=== PATIENT | male | born 1980 | race Two or more races ===

== ENCOUNTER 2024-06-21 04:23 | Emergency (ER) | payer MEDICAID, SELFPAY ==
[2024-06-21 04:24] VITALS: BMI 32.5
[2024-06-21 04:36] VITALS: BP 167/124; PULSE 89; RESP 19; TEMP 36.8; O2SAT 98
--- NOTE | 2024-06-21 04:46 | XR_ITS ---
Examination: Hand, left 3 views Technique: Hand AP, oblique, lateral 3 views Date and time of exam: June 21, 2024 0452 hrs. Indications: Injury to the hand today, foreign bodies and pain Findings: No opaque foreign bodies No cortical bone destruction No fracture or dislocation Impression: No opaque foreign bodies visualized
--- NOTE | 2024-06-21 04:52 | EDRME_ITS ---
Rapid Medical Screening Exam [facility] Arrival date/time: 06/21/24 04:23 43M with history of DM and drug use abuse presents to ED with several days of L hand pain/swelling after he was poked by porcupine-like needles several days ago. Separately, patient has an ulcer on the shaft of his penis. Patient denies dysuria and penile discharge. Chief Complaint: Hand/Wrist Problems Vital signs: Vital Signs Temperature 98.3 F 06/21/24 04:36 Pulse Rate 89 06/21/24 04:36 Respiratory Rate 19 06/21/24 04:36 Blood Pressure 167/124 H 06/21/24 04:36 Pulse Oximetry (%) 98 06/21/24 04:36 Oxygen Delivery Method Room Air 06/21/24 04:36
[2024-06-21 05:33] LABS: Basophils % (Auto) 0 % (0-2.5); Eosinophils # (Auto) 0.1 Thou/mm3 (0.0-0.5); Eosinophils % (Auto) 1 % (0-10); Hematocrit 44.5 % (41.0-53.0); Immature Granulocytes % (Auto) 1 % (0-0); Immature Granulocytes Auto 0.06 Thou/mm3 (0.00-0.00); Lymphocytes # (Auto) 1.6 Thou/mm3 (1.0-4.8); Lymphocytes % (Auto) 13 % (10-50); Mean Corpuscular HGB Conc 33.7 g/dl (31.0-37.0); Mean Corpuscular Hemoglobin 27.6 pg (25.0-35.0); Mean Corpuscular Volume 82 fL (80-100); Monocytes # (Auto) 1.1 Thou/mm3 (0.0-0.8); Monocytes % (Auto) 9 % (0-12); Neutrophils # (Auto) 9.4 Thou/mm3 (1.8-7.7); Neutrophils % (Auto) 77 % (37-80); Nucleated Red Blood Cell % 0 /100 WBC (0); Platelet Count 266 Thou/mm3 (140-440); RDW Standard Deviation 40.7 fL (35.1-43.9); Red Blood Count 5.43 Miln/mm3 (4.50-5.90); White Blood Count 12.2 Thou/mm3 (3.8-10.6)
[2024-06-21 05:51] LABS: Alanine Aminotransferase 26 U/L (10-49); Albumin, Serum 4.6 gm/dL (3.5-5.0); Albumin/Globulin Ratio 1.8 (1.2-2.2); Alkaline Phosphatase 105 U/L (46-116); Anion Gap 7 (7-16); Aspartate Amino Transferase 26 U/L (0-34); BUN/Creatinine Ratio 14 Ratio (12-20); Bilirubin,Total 0.8 mg/dL (0.3-1.2); Blood Urea Nitrogen 13 mg/dL (9-23); Calcium 9.1 mg/dL (8.3-10.6); Calcium (Corrected) 9.1 mg/dL (8.5-10.1); Carbon Dioxide 24.2 mMol/L (20.0-31.0); Chloride 105 mMol/L (98-107); Creatinine (Component) 0.9 mg/dL (0.6-1.3); Estimated Creatinine Clearance 102.6 mL/min (>60); Globulin 2.6 gm/dL (2.3-3.5); Glucose 151 mg/dL (74-106); Osmolality,Calculated 275 (275-295); Potassium 3.8 mMol/L (3.4-5.1); Sodium 136 mMol/L (136-145); Total Protein 7.2 gm/dL (5.7-8.2); eGFR > 60 See Note
[2024-06-21 06:10] LABS: Syphilis Nonreactive (Nonreactive)
[2024-06-21 07:34] VITALS: PULSE 90
--- NOTE | 2024-06-21 07:34 | PC.NURSE ---
Pt coming from ED lobby; pt c/o L hand pain s/p being poked by a porcupine. 2 of pt's L hand fingers swollen with decreased ROM due to pain & swelling. Pt A&Ox4, GCS 15; pt in bed resting comfortably at this time.
[2024-06-21] MEDS: KETOROLAC INJ 60 MG/2 ML VIAL 30 MG IM (08:04)
--- NOTE | 2024-06-21 08:08 | PD.EDRME ---
Rapid Medical Screening Exam RME Arrival date/time: 06/21/24 04:23 06/21/24 04:23 43M with history of DM and drug use abuse presents to ED with several days of L hand pain/swelling after he was poked by porcupine-like needles several days ago. Separately, patient has an ulcer on the shaft of his penis. Patient denies dysuria and penile discharge. DR. BURNETTE MAIN ED EVALUATION: Chief Complaint: Hand/Wrist Problems Vital signs: Vital Signs Temperature 98.3 F 06/21/24 04:36 Pulse Rate 89 06/21/24 04:36 Respiratory Rate 19 06/21/24 04:36 Blood Pressure 167/124 H 06/21/24 04:36 Pulse Oximetry (%) 98 06/21/24 04:36 Oxygen Delivery Method Room Air 06/21/24 04:36 E Narrative: 06/21/24 04:23 43M with history of DM and drug use abuse presents to ED with several days of L hand pain/swelling after he was poked by porcupine-like needles several days ago. Separately, patient has an ulcer on the shaft of his penis. Patient denies dysuria and penile discharge.
[2024-06-21 08:16] VITALS: BP 109/74; PULSE 85; RESP 17; TEMP 36.9; O2SAT 97
--- NOTE | 2024-06-21 08:20 | PC.NURSE ---
Dr. Shiloh Treviño made aware of pt's FSBS 241
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
--- NOTE | 2024-06-21 08:33 | PC.NURSE ---
@0833- RN at bedside; pt requesting to leave AMA; RN asked if pt can wait for discharge instructions. Pt replied, No, I've been here for 4 hours. I dont wanna wait anymore. Pt asked if pt willing to sign AMA form. Pt said, Yes. @0834- Dr. Jay Treviño made aware pt wants to leave AMA. @0835- Dr. Jay Treviño and RN at bedside with pt; Dr. Treviño explained to pt the risks of leaving AMA. Pt responds, Ok. I still want to leave. Pt GCS 15 and A&Ox4. @0836- Pt signed AMA form and left the Emergency Department.
[2024-06-21 08:43] VITALS: BP 144/93; PULSE 87; RESP 15; TEMP 36.8; O2SAT 98
== END 2024-06-21 08:36 | disposition left against medical advice (07) ==
PROVIDERS: Physician Assistant; Emergency Provider Emergency Medicine; PCP Family Medicine
DX: L25.9 Unspecified contact dermatitis, unspecified cause (principal); Z53.29 Procedure and treatment not carried out because of patient's decision for other reasons
CPT/HCPCS: 36415; 73130; 80053; 85025; 86780; 96372; 99283; J1885

== ENCOUNTER 2024-12-29 01:17 | Emergency (ER) | payer MEDICAID, SELFPAY ==
[2024-12-29 01:20] VITALS: BMI 28.1
[2024-12-29 02:29] VITALS: BP 131/80; PULSE 94; RESP 18; TEMP 36.9; O2SAT 98
--- NOTE | 2024-12-29 02:30 | EDNOTE_ITS ---
ED Abdominal Pain RME/HPI General Chief Complaint: Abdominal Pain Stated complaint: ABD PAIN,NUASEA Time seen by provider: 12/29/24 01:26 Arrival date/time: 12/29/24 01:17 RME / HPI RME / HPI narrative: Dr. Ayala?s Main ED Evaluation: 44yo male with no significant past medical history presents to the ED for complaints of nausea, headache, and dizziness. Patient states he was working in the backyard using weed killer, reporting he feels he may have inhaled some of the chemical due to not wearing a mask, reporting he started having nausea, dizziness, and a headache after. Patient denies any V/D, constipation, shortness of breath, cough, fever, chills, sweating, UTI symptoms or any other associated symptoms. NKA. Related Data Previous Rx's ?Medication ?Instructions ?Recorded ibuprofen 800 mg tablet 800 mg PO TID PRN pain #30 t abs 10/13/18 naloxone 4 mg/actuation nasal 1 spray intranasal Q2M # 2 ea 02/25/22 spray (Narcan) insulin lispro 100 unit/mL 3 unit (0.03 mL) subcut TID #15 mL 10/27/23 subcutaneous pen (Admelog SoloStar U-100 Insulin lispro) pen needle, diabetic 29 gauge x #100 ea 10/27/23 1/2 (1st Tier Unifine Pentips Plus) insulin glargine 100 unit/mL (3 12 unit (0.12 mL) subc ut QAM #15 mL 10/28/23 mL) subcutaneous pen Allergies Allergy/AdvReac Type Severity Reaction Status Date / Time No Known Allergies Allergy Verified 12/29/24 01:18 Review of Systems Review of Systems Systems Reviewed: All systems reviewed, normal except as documented Past Medical History Past Medical History CARDIAC: Negative Cardiac Disorders or Congestive Heart Failure RESPIRATORY: Negative Chronic Obstructive Pulmonary Disease (COPD) or Asthma GENITOURINARY: Negative Renal Disease ENDOCRINE: Negative Diabetes Mellitus Type 1 or Diabetes Mellitus Type 2 HEMATOLOGIC: Negative Sickle Cell Disease Social History SMOKING STATUS: Current every day smoker ED Exam Narrative Physical exam: GENERAL APPEARANCE: alert and oriented x 4, well-developed, well-nourished, no acute distress VITALS: All vitals were reviewed and the pulse ox is 98% on room air, which is normal according to my interpretation. HEENT: Normocephalic, atraumatic; pupils equal, round, reactive to light; EOMI; mucous membranes pink, moist; oropharynx clear NECK: Supple LUNGS: CTABL; no wheezes, no rales, no rhonchi HEART: Regular rate, regular rhythm; normal S1, S2; no murmurs ABDOMEN: non distended; normal BS; soft, no tenderness, no guarding, no rebound; no masses, no organomegaly, no hernia BACK: no CVA tenderness EXTREMITIES: atraumatic; no edema NEUROLOGIC: awake; alert and oriented x4; cranial nerves II-XII grossly intact; no focal sensory or motor deficits PSYCHIATRIC: appropriate mood and affect SKIN: warm, dry, normal color; no rashes Course Quality Measures none Orders Category Date Time Status Bedside Blood Glucose NOW Care 12/29/24 02:35 Active EKG (ED ONLY) *Do not use* NOW Care 12/29/24 02:34 Completed EKG (ED Only) Stat Exams 12/29/24 02:34 Draft B-Type Natriuretic Peptide Stat Lab 12/29/24 02:50 Completed CBC Stat Lab 12/29/24 02:50 Completed Comprehensive Metabolic Panel Stat Lab 12/29/24 02:50 Completed Lipase Stat Lab 12/29/24 02:50 Completed Magnesium Stat Lab 12/29/24 02:50 Completed Troponin I Stat Lab 12/29/24 02:50 Completed UA, C/S IF [Urinalysis, C/S if Indicated] Stat Lab 12/29/24 03:14 Completed Acetaminophen Tab [Tylenol Tab] Med 12/29/24 02:35 Discontinued 650 mg PO X1 ONE Ondansetron Odt [Zofran Odt] Med 12/29/24 02:35 Discontinued 4 mg PO X1 ONE Vital Signs Vital signs: Vital Signs Temperature 98.4 F 12/29/24 02:29 Pulse Rate 94 12/29/24 02:29 Respiratory Rate 18 12/29/24 02:29 Blood Pressure 131/80 H 12/29/24 02:29 Pulse Oximetry (%) 98 12/29/24 02:29 Oxygen Delivery Method Room Air 12/29/24 02:29 Abdominal Pain MDM MDM Narrative MDM Narrative:: Scribe Attestation: 12/29/24 - Sri Cantor am scribing for and in the presence of Dr. Ayala. Patient data External records reviewed:: [facility] previous records (Per chart review, patient was seen here on 06/21/24 for contact dermatitis.) Clinical information provided by:: patient Social determinants that could affect healthcare access:: none Patient has the following chronic illnesses:: none How is presenting disease/condition affected by chronic disease/condition?: no chronic disease Evaluation data The following diagnostics were reviewed and interpreted by me:: lab results Lab and/or radiology exams considered but not ordered:: none Interpretation Summary: CBC normal, Creatinine 1.4, BNP normal, Troponin normal, UA negative for UTI (but does have 4+ glucose). Medications / Prescriptions Medications or Prescriptions considered but not ordered:: none Medication administrations:: Medication Administration History Discontinued Medications Acetaminophen (Acetaminophen 325 Mg Tablet) 650 mg PO X1 ONE Stop: 12/29/24 02:36 Last Admin: 12/29/24 02:49 Dose: 650 mg Documented By: CVL Ondansetron HCl (Ondansetron Odt 4 Mg Tabrap) 4 mg PO X1 ONE; Protocol Stop: 12/29/24 02:36 Last Admin: 12/29/24 02:48 Dose: 4 mg Documented By: CVL see above Consultations Consultation(s) initiated? (list below): No Diagnosis Differential diagnosis abdominal pain: other (enteritis, viral syndrome, heat exhaustion, dehydration) Most likely diagnosis given after review of the tests above:: mild dehydration, glucosuria, nausea, MARCELA Admission Indicated Admission indicated?: not indicated Admission Request Was there a request for admission?: No Disposition Plan Disposition Plan: Discharge Discharge Attestation Discharge Attestation: The patient and all family members were given an opportunity to ask questions and understood the discharge instructions. Discharge instructions specifically effects, indications for sooner follow up or return to the emergency department, and the expected course of current diagnosis. Patient condition: Stable Discharge Plan Plan Patient Disposition: HOME (Self Care) Prescriptions/Referrals Prescriptions/Med Rec: No Action ibuprofen 800 mg tablet 800 mg PO TID PRN (Reason: pain) Qty: 30 0RF naloxone [Narcan] 4 mg/actuation spray,non-aerosol 1 spray intranasal Q2M Qty: 2 0RF Rx Instructions: spray 1 dose into ONE nostril; alternate nostrils w each dose until help arrives insulin lispro [Admelog SoloStar U-100 Insulin] 100 unit/mL insulin pen 3 unit subcut TID Qty: 15 3RF (DME) pen needle, diabetic [1st Tier Unifine Pentips Plus] 29 gauge x 1/2 needle See Rx Instructions .Route Qty: 100 0RF Rx Instructions: As directed insulin glargine 100 unit/mL (3 mL) insulin pen 12 unit subcut QAM Qty: 15 3RF Referrals: No Primary/Family,Physician [Primary Care Provider] - In 1 week Problem List Clinical Impression: Mild dehydration, Glucosuria, MARCELA (acute kidney injury), Dehydration, Nausea Patient/Caregiver Discharge Instructions Education Materials: ED Dehydration (Adult) Additional Instructions: Drink plenty of fluids. Avoid medications such as ibuprofen, naproxen, and other NSAID medications. Print Language: Mohawk Stand Alone Forms: [facility] Award Info., Patient Portal Info Letter
--- NOTE | 2024-12-29 02:34 | EKG_ITS ---
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
[2024-12-29] MEDS: ONDANSETRON ODT 4 MG TABRAP PO (02:48)
[2024-12-29] MEDS: ACETAMINOPHEN 325 MG TABLET 650 MG PO (02:49)
[2024-12-29 03:10] LABS: Basophils # (Auto) 0.1 Thou/mm3 (0.0-0.2); Basophils % (Auto) 1 % (0-2.5); Eosinophils # (Auto) 0.4 Thou/mm3 (0.0-0.5); Eosinophils % (Auto) 5 % (0-10); Hematocrit 46.1 % (41.0-53.0); Hemoglobin 15.8 g/dL (13.5-16.0); Immature Granulocytes % (Auto) 1 % (0-0); Immature Granulocytes Auto 0.06 Thou/mm3 (0.00-0.00); Lymphocytes # (Auto) 3.1 Thou/mm3 (1.0-4.8); Lymphocytes % (Auto) 33 % (10-50); Mean Corpuscular HGB Conc 34.3 g/dl (31.0-37.0); Mean Corpuscular Hemoglobin 28.3 pg (25.0-35.0); Mean Corpuscular Volume 83 fL (80-100); Monocytes # (Auto) 0.7 Thou/mm3 (0.0-0.8); Monocytes % (Auto) 8 % (0-12); Neutrophils % (Auto) 53 % (37-80); Nucleated Red Blood Cell % 0 /100 WBC (0); Platelet Count 298 Thou/mm3 (140-440); RDW Standard Deviation 40.1 fL (35.1-43.9); Red Blood Count 5.59 Miln/mm3 (4.50-5.90); White Blood Count 9.5 Thou/mm3 (3.8-10.6)
[2024-12-29 03:18] LABS: Collection Type, Urine Clean Catch; Squamous Epithelial Cell,Urine 0 /hpf (0-5)
[2024-12-29 03:27] LABS: B-Type Natriuretic Peptide < 20 pg/mL (0-100)
[2024-12-29 03:29] LABS: Alanine Aminotransferase 25 U/L (10-49); Albumin, Serum 4.9 gm/dL (3.5-5.0); Alkaline Phosphatase 83 U/L (46-116); Anion Gap 13 (7-16); Aspartate Amino Transferase 32 U/L (0-34); BUN/Creatinine Ratio 14 Ratio (12-20); Bilirubin,Total 0.6 mg/dL (0.3-1.2); Blood Urea Nitrogen 19 mg/dL (9-23); Calcium 10.3 mg/dL (8.3-10.6); Calcium (Corrected) 10.3 mg/dL (8.5-10.1); Carbon Dioxide 24.5 mMol/L (20.0-31.0); Chloride 99 mMol/L (98-107); Creatinine (Component) 1.4 mg/dL (0.6-1.3); Estimated Creatinine Clearance 67.4 mL/min (>60); Globulin 2.5 gm/dL (2.3-3.5); Glucose 172 mg/dL (74-106); Lipase 30 U/L (12-53); Magnesium 2.2 mg/dL (1.6-2.6); Osmolality,Calculated 278 (275-295); Sodium 136 mMol/L (136-145); Total Protein 7.4 gm/dL (5.7-8.2); Troponin I < 0.020 ng/mL (0.0-0.045); eGFR > 60 See Note
[2024-12-29 03:46] LABS: Bilirubin,Urine Negative (Negative); Blood,Urine Negative (Negative); Clarity,Urine Clear (Clear/Hazy); Color,Urine Lt-Yellow (Lt Yel-Yel); Culture Indicated,Urine Not Indicated; Glucose, Urine 4+ (Negative); Ketones,Urine Negative (Negative); Leukocyte Esterase,Urine Negative (Negative); Nitrite,Urine Negative (Negative); Protein,Urine Negative (Neg - Trace); RBC,Urine 4 /hpf (0-3); Specific Gravity,Urine 1.039 (1.001-1.035); Urobilinogen,Urine Negative mg/dL (0.0-1.0); WBC,Urine < 1 /hpf (0-5)
== END 2024-12-29 04:09 | disposition home or self-care (01) ==
PROVIDERS: Emergency Provider Emergency Medicine
DX: N17.9 Acute kidney failure, unspecified (principal); E86.0 Dehydration; R81 Glycosuria; R11.0 Nausea; R94.31 Abnormal electrocardiogram [ECG] [EKG]
CPT/HCPCS: 36415; 80053; 81001; 83690; 83735; 83880; 84484; 85025; 93005; 99283; Q0162; A9270

== ENCOUNTER 2025-05-02 17:17 | Emergency (ER) | payer MEDICAID, SELFPAY ==
[2025-05-02 17:22] VITALS: BP 153/100; PULSE 101; RESP 18; TEMP 36.9; O2SAT 95; BMI 30.8
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
[2025-05-02] MEDS: DIPHTH,PERTUSS(ACELL),TET VAC 0.5 ML SYR- ADULT IMi (18:26)
[2025-05-02] MEDS: LIDOCAINE INJ PF 1% 5 ML VIAL 10 ML INFL (18:27)
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
[2025-05-02 20:08] VITALS: BP 139/90; PULSE 90; RESP 18; TEMP 36.9; O2SAT 99
== END 2025-05-02 21:55 ==
PROVIDERS: Emergency Provider Emergency Medicine
DX: K59.00 Constipation, unspecified (principal); S20.212A Contusion of left front wall of thorax, initial encounter; S61.511A Laceration without foreign body of right wrist, initial encounter; E11.9 Type 2 diabetes mellitus without complications; V18.4XXA Pedal cycle driver injured in noncollision transport accident in traffic accident, initial encounter; Y93.55 Activity, bike riding; Z79.4 Long term (current) use of insulin
CPT/HCPCS: 12002; 71101; 74019; 90471; 90715; 99283; J3490